=== PATIENT | female | born 1980 | race African-American/Black ===

== ENCOUNTER → 2019-06-22 | Outpatient (CLI) | payer MEDICAID ==
--- NOTE | 2019-06-22 14:37 | WOMENS IMAGING REPORT ---
EXAM DESCRIPTION: U/S CHEST COMPLETED DATE/TIME: 06/22/2019 12:44 pm REASON FOR STUDY: R22.2 LOCALIZED SWELLING, MASS AND LUMP, HEAD R22.0 LOCALIZED SWELLING, MASS AND LUMP, HEAD COMPARISON: None. TECHNIQUE: Dynamic and static grayscale images acquired of the localized site of clinical concern an d recorded on PACS. Additional selected color Doppler and spectral images recorded. SITE OF CONCERN: Upper sternum. LIMITATIONS: None. FINDINGS: There is an oval hypoechoic solid nodule in the subcutaneous fatty tissues in the area of concern, measuring 4 x 10 mm. Smooth margins and homogeneous echogenicity. No distal shadowing. IMPRESSION: SMALL SOLID NODULE IN THE SUBCUTANEOUS FATTY TISSUES OVERLYING THE UPPER STERNUM. NONSP ECIFIC APPEARANCE. THIS COULD BE A LYMPH NODE. TECHNICAL DOCUMENTATION: JOB ID: [id number] [employer]- All Rights Reserved Reading location - IP/workstation name: [email or web address]
== END ==
LOC: WI 13:17
PROVIDERS: ATTEND Nurse Practitioner Family
DX: R22.2 Localized swelling, mass and lump, trunk (principal)
CPT/HCPCS: 76604